=== PATIENT | male | born 1995 | race Caucasian/White ===

== ENCOUNTER 2017-12-14 02:00 | Emergency (ER) | payer OTHER ==
[~2017-12-14] VITALS: Ht 170.2 cm; Wt 78.3 kg
[~2017-12-14 02:00] MED LIST: AGM500 PO; ATOM40CA PO; ATR25 PO; GDN60 PO; RISP0.5T10 PO; TRAZ100T29 PO
[2017-12-14 02:02] VITALS: TEMP 37.4; Ht 170.2 cm; Wt 78.3 kg
[2017-12-14] MEDS ORDERED: KETOROLAC TROMETHAMINE 60 MG/2 ML VIAL IM STA (02:52)
[2017-12-14] MEDS ORDERED: LIDOCAINE HCL 2% VISC SOLN 20 ML UDC MT STA (04:06)
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
[2017-12-14 04:57] VITALS: BP 136/69; PULSE 63; O2SAT 98
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
== END 2017-12-14 04:57 | disposition home or self-care (01) ==
LOC: EDBD 02:00 → C.EDA 02:01
DX: T74.11XA Adult physical abuse, confirmed, initial encounter (principal); T14.8XXA Other injury of unspecified body region, initial encounter; S62.647A Nondisplaced fracture of proximal phalanx of left little finger, initial encounter for closed fracture; Y04.0XXA Assault by unarmed brawl or fight, initial encounter; Y04.2XXA Assault by strike against or bumped into by another person, initial encounter; Y07.59 Other non-family member, perpetrator of maltreatment and neglect

== ENCOUNTER 2020-04-06 18:53 | Inpatient (IN) ==
[2020-04-06 20:01] LABS: iSTAT Creatinine 0.8 mg/dl (0.6-1.3); iSTAT Hemoglobin 15.3 g/dl (14.0-18.0); iSTAT Ionized Calcium 1.25 mmol/l (1.12-1.32); iSTAT Potassium 4.3 mmol/L (3.3-5.0)
[2020-04-06] MEDS ORDERED: DIPHTHERIA/TETANUS/PERTUSSIS 0.5 ML SYR/VIAL IM ONE (20:05)
[2020-04-06] MEDS ORDERED: CLINDAMYCIN 600 MG in DEXTROSE 5% 50 ML IV ONE (20:05)
[2020-04-06] MEDS ORDERED: AMPICILLIN/SULBACTAM SOD 3,000 MG in 0.9 % SODIUM CHLORIDE 100 ML IV STA (20:05)
[2020-04-06] MEDS ORDERED: ONDANSETRON INJ 2 MG/ML 2 ML VIAL IV STA (20:05)
[2020-04-06] MEDS ORDERED: SODIUM CHLORIDE 0.9% 1000ML 1,000 ML IV SCH (20:15)
[2020-04-06] MEDS: fentaNYL citrate 100 MCG/2 ML VIAL IV PRN ×4 (20:15→23:59)
[2020-04-06 20:30] LABS: Hematocrit (blood only) 47.4 % (42-52); Mean Corpuscular Hemoglobin 32.6 pg (25-34); Mean Corpuscular Hgb Conc 33.8 g/dL (32-36); Mean Corpuscular Volume 96.5 fL (80-100); Mean Platelet Volume 10.2 fL (7.4-10.4); Platelet Count 286 K/uL (130-400); RDW Coefficient of Variation 12.7 % (11.5-14.5); RDW Standard Deviation 44.1 fL (36.4-46.3); Red Blood Count 4.91 M/uL (4.7-6.1); White Blood Count 17.05 K/uL (4.8-10.8)
[2020-04-06 20:37] LABS: Albumin Level 3.6 gm/dl (3.4-5.0); BUN Creatinine Ratio 14.8 (10-20); Creatinine Clr Calc Pharmacy 103.4 ml/min; Est GFR (African American) 117.6; Est GFR (Non-African American) 101.4; Potassium 4.4 mmol/L (3.5-5.1)
[2020-04-06 20:39] LABS: Partial Thromboplastin Time 26.8 Seconds (21.0-31.0); Prothrombin Time 10.5 Seconds (9.0-12.0)
[2020-04-06 20:40] LABS: Albumin Globulin Ratio 0.9 (0.9-2); Bilirubin,Total 0.3 mg/dl (0.2-1); Total Protein 7.6 gm/dl (6.4-8.2)
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
[2020-04-06 20:52] LABS: Basophils # (auto) 0.05 K/uL (0-0.2); Basophils % (auto) 0.3 %; Eosinophils # (auto) 0.12 K/uL (0-0.5); Eosinophils % (auto) 0.7 %; Immature Granulocytes # (auto) 0.23 K/uL (0.00-0.02); Immature Granulocytes % (auto) 1.3 %; Lymphocytes # (auto) 2.36 K/uL (1.2-3.4); Lymphocytes % (auto) 13.8 %; Monocytes # (auto) 1.23 K/uL (0.11-0.59); Monocytes % (auto) 7.2 %; Neutrophils # (auto) 13.06 K/uL (1.4-6.5); Neutrophils % (auto) 76.7 %
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
[2020-04-06] MEDS ORDERED: LIDOCAINE/EPINEPHRINE 1% 20 ML VIAL INFIL ONE (21:36)
[2020-04-06] MEDS ORDERED: LIDOCAINE/EPINEPH/TETRACAINE 1 EA SYR EXT STA (21:39)
[2020-04-06] MEDS ORDERED: HYDROmorphone INJ 0.5 MG/0.5 ML SYR IV STA (22:08)
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
[2020-04-07] MEDS ORDERED: ONDANSETRON INJ 2 MG/ML 2 ML VIAL IV PRN ×2 (00:30→15:52)
[2020-04-07 00:40] LABS: Appearance Urine Cloudy (Clear); Bacteria Urine Automated Negative (Negative); Bilirubin Urine Negative (Negative); Blood Urine Negative (Negative); Color Urine Yellow; Epithelial Cell Urine Auto 0-5 /lpf (0-5); Glucose Urine UA 2+ (Negative); Ketones Urine Negative (Negative); Leukocyte Esterase Urine Negative (Negative); Nitrite Urine Negative (Negative); Protein Urine Negative (Negative); RBC Urine Automated 0-4 /hpf (0-4); Specific Gravity Urine 1.021 (1.000-1.030); Urobilinogen Urine Negative (Negative); WBC Urine Automated 0 /hpf (0-5); pH Urine 7.5 (4.5-7.5)
[2020-04-07] MEDS: SODIUM CHLORIDE 0.9% 1000ML 1,000 ML IV SCH ×2 (00:41→09:32)
[2020-04-07] MEDS ORDERED: DEXTROSE 50% 50 ML SYRINGE IV PRN (00:45)
[2020-04-07] MEDS ORDERED: GLUCOSE 40% GEL 15 GM TUBE PO PRN (00:45)
[2020-04-07] MEDS ORDERED: CARBOHYDRATES FOR HYPOGLYCEMIA PO PRN (00:45)
[2020-04-07] MEDS ORDERED: GLUCOSE 10 TABS/TUBE PO PRN (00:45)
[2020-04-07] MEDS ORDERED: GLUCAGON FOR INJ 1 MG VIAL SQ PRN (00:45)
[2020-04-07] MEDS: HYDROmorphone INJ 0.5 MG/0.5 ML SYR IV PRN ×5 (01:19→14:31)
[2020-04-07] MEDS: AMPICILLIN/SULBACTAM SOD 1,500 MG in 0.9 % SODIUM CHLORIDE 100 ML IV SCH ×3 (04:02→17:39)
[2020-04-07] MEDS ORDERED: HYDROmorphone INJ 0.5 MG/0.5 ML SYR IV STA ×2 (05:33→08:32)
[2020-04-07 05:45] LABS: Hemoglobin 15.7 g/dL (14.0-18.0); Mean Corpuscular Hemoglobin 33.2 pg (25-34); Mean Corpuscular Hgb Conc 34.9 g/dL (32-36); Mean Corpuscular Volume 95.1 fL (80-100); Mean Platelet Volume 9.5 fL (7.4-10.4); Platelet Count 243 K/uL (130-400); RDW Coefficient of Variation 12.6 % (11.5-14.5); RDW Standard Deviation 43.7 fL (36.4-46.3); Red Blood Count 4.73 M/uL (4.7-6.1); White Blood Count 20.33 K/uL (4.8-10.8)
[2020-04-07] MEDS ORDERED: INSULIN ASPART 100 UNITS/ML 3 ML PEN SC SCH ×2 (06:00→07:30)
[2020-04-07 06:08] LABS: Estimated Average Glucose 108 mg/dl; Hemoglobin A1C 5.4 % (4.5-5.6)
[2020-04-07 06:13] LABS: Basophils # (auto) 0.05 K/uL (0-0.2); Basophils % (auto) 0.2 %; Eosinophils # (auto) 0.05 K/uL (0-0.5); Eosinophils % (auto) 0.2 %; Immature Granulocytes # (auto) 0.15 K/uL (0.00-0.02); Immature Granulocytes % (auto) 0.7 %; Lymphocytes # (auto) 1.91 K/uL (1.2-3.4); Lymphocytes % (auto) 9.4 %; Monocytes # (auto) 2.25 K/uL (0.11-0.59); Monocytes % (auto) 11.1 %; Neutrophils # (auto) 15.92 K/uL (1.4-6.5); Neutrophils % (auto) 78.4 %
[2020-04-07 06:22] LABS: BUN Creatinine Ratio 10.2 (10-20); Blood Urea Nitrogen 7 mg/dl (7-18); Calcium 8.9 mg/dl (8.5-10.1); Carbon Dioxide 25 mmol/L (21-32); Chloride 110 mmol/L (98-107); Creatinine Clr Calc Pharmacy 161.4 ml/min; Est GFR (African American) > 150.0; Est GFR (Non-African American) 138.1; Glucose 103 mg/dl (70-99); Magnesium 2.2 mg/dl (1.8-2.4); Potassium 3.9 mmol/L (3.5-5.1); Sodium 140 mmol/L (136-145)
--- NOTE | 2020-04-07 07:40 | XRay Report ---
XR chest 1V portable CLINICAL HISTORY: pre op COMPARISON STUDY: No previous studies for comparison. FINDINGS: The bones soft tissues and hemidiaphragms are normal. The cardiomediastinal silhouette is n ormal. The lungs are clear. The pulmonary vasculature is normal. IMPRESSION: Negative chest. ACT 112: Negative or not required by law. The above report was generated using voice recognition software. It may contain grammatical, syntax or spelling errors. Electronically signed by: Brad Deleon M.D. 04/07/2020 7:39 AM
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
[2020-04-07] MEDS: MUPIROCIN 2% OINT 22 GM TUBE EXT SCH (09:54)
[2020-04-07] MEDS ORDERED: ACETAMINOPHEN 1,000 MG/100 ML VIAL IV ONE (13:00)
[2020-04-07] MEDS ORDERED: TRIAMCINOLONE ACET 0.1% OINT 15 GM TUBE ONE (15:11)
[2020-04-07] MEDS ORDERED: LIDOCAINE/EPINE 2% 1:100,000 20ML ONE (15:12)
[2020-04-07] MEDS ORDERED: CHLORHEXIDINE GLUCONATE 0.12% 480 ML ONE (15:12)
[2020-04-07] MEDS ORDERED: BUPIVACAINE/EPINEPHRINE 0.5% 1:200,000 1.8 ML CARP ONE ×2 (15:12→17:52)
[2020-04-07 15:35] LABS: Amphetamines+Metham, Urine Neg (Neg); Barbiturates, Urine Neg (Neg); Benzodiazepine, Urine Neg (Neg); Cocaine, Urine Neg (Neg); MDMA (Ecstacy), Urine Neg (Neg); Methadone, Urine Neg (Neg); Opiate, Urine Pos (Neg); Phencyclidine, Urine Neg (Neg)
[2020-04-07] MEDS ORDERED: ATROPINE SULFATE 0.1 MG/ML 10ML SYR IV PRN (15:52)
[2020-04-07] MEDS ORDERED: ePHEDrine sulfate 50 MG/ML AMP IV PRN (15:52)
[2020-04-07] MEDS ORDERED: HYDROmorphone INJ 2 MG/ML SYR/VIAL IV PRN (15:52)
--- NOTE | 2020-04-07 15:52 | Anesthesiology Consultation ---
Date of Service April 07, 2020 Assessment & Plan ASA ASA2 Proposed Anesthesia Anesthesia Type: General Risk / Benefits Reviewed With: PT / POA / Parent / Guardian, Accepts Plan and Informed Consent Obtained History Surgery Operation Date: 04/07/20 10:20 Proposed Procedures p Right Lower Jaw Open/Closed Reduction, - Sheldon Burk DMD s Extraction of Teeth - Sheldon Burk DMD Height/Weight Height: 5 ft 11 in Weight: 64 kg Allergies Allergy/AdvReac Type Severity Reaction Status Date / Time cat dander AdvReac Mild Cough Verified 04/06/20 20:47 Medications Home Medications Medication Instructions Recorded Confirmed Last Taken No Known Home Medications 08/27/18 04/06/20 Unknown Active Medications Generic Name Dose Route Start Last Admin Trade Name Freq PRN Reason Stop Dose Admin Hydromorphone HCl 0.5 mg 04/07/20 00:30 04/07/20 14:31 Dilaudid IV 04/21/20 00:29 0.5 mg Q3H PRN Administration Pain Sodium Chloride 1,000 mls @ 125 mls/hr 04/07/20 00:30 04/07/20 09:32 Nss 1000ml IV 05/07/20 00:29 125 mls/hr .Q8H CHRISTO Administration Ampicillin Sodium/Sulbactam 104 mls @ 200 mls/hr 04/07/20 04:00 04/07/20 10:48 Sodium 1,500 mg/ Sodium IV 04/14/20 03:59 Infused Chloride Q6H CHRISTO Infusion Protocol Mupirocin 1 appln 04/07/20 09:00 04/07/20 09:54 Bactroban 2% EXT 05/07/20 08:59 1 appln DAILY CHRISTO Administration NPO Date Last Intake of Fluids: 04/06/20 Time Last Intake of Fluids: 23:59 Date Last Intake of Solids: 04/03/20 Time Last Intake of Solids: 23:59 Past Medical History Medical History No significant past medical history Exercise / Class Metabolic Activity 1 > 8 Run/Swim/Ski/Tennis Past Surgical History Surgical History No significant past surgical history Past Anesthesia History No Hx of Anesthesia Complications and No Family Hx of Anesthesia Complications History of PONV No Hx of PONV and No Hx of Motion Sickness Social History Smoking Status: Current some day smoker Hx Alcohol Use: Yes substance use type: unknown Review of Systems denies fever/cough/ colds/ chest pain/ SOB/ HECTOR Constitutional: no fever and no chills Respiratory: no cough and no dyspnea denies HECTOR Cardiovascular: no chest pain and no dyspnea on exertion Physical Exam Vital Signs Last Vital Signs Temp 36.8 C 04/07/20 15:11 Pulse 60 04/07/20 15:11 Resp 18 04/07/20 15:11 BP 129/64 04/07/20 15:11 Pulse Ox 98 04/07/20 15:11 ENMT Mouth: + poor dentition (pt has many shattered teeth from injury. ) and + small oral opening; no TMJ abnormality and no dentition abnormality Thyromental Distance: > or= 3.5 Finger Breadths Mallampati Class: IV Neck neck extension not limited Respiratory normal respiratory effort; no respiratory distress Auscultation: lungs clear to auscultation bilaterally Cardiovascular Rate/Rhythm: regular rate and regular rhythm Neurologic moves all extremities Psychiatric Orientation: alert and oriented x 3 Testing Laboratory Results 04/07/20 05:28 04/07/20 05:28 PT 10.5 Seconds (9.0-12.0) 04/06/20 19:33 INR 1.0 (0.9-1.1) 04/06/20 19:33 APTT 26.8 Seconds (21.0-31.0) 04/06/20 19:33 Hemoglobin A1c 5.4 % (4.5-5.6) 04/07/20 05:28 Urine Color Yellow 04/07/20 00:30 Urine Appearance Cloudy (Clear) A 04/07/20 00:30 Urine pH 7.5 (4.5-7.5) 04/07/20 00:30 Ur Specific [place] 1.021 (1.000-1.030) 04/07/20 00:30 Urine Protein Negative (Negative) 04/07/20 00:30 Urine Glucose (UA) 2+ (Negative) H 04/07/20 00:30 Urine Ketones Negative (Negative) 04/07/20 00:30 Urine Nitrite Negative (Negative) 04/07/20 00:30 Ur Leukocyte Esterase Negative (Negative) 04/07/20 00:30 Urine WBC (Auto) 0 /hpf (0-5) 04/07/20 00:30 Urine RBC (Auto) 0-4 /hpf (0-4) 04/07/20 00:30 U Hyaline Cast (Auto) 1-5 /lpf (0-5) 04/07/20 00:30 U Epithel Cells (Auto) 0-5 /lpf (0-5) 04/07/20 00:30 Urine Bacteria (Auto) Negative (Negative) 04/07/20 00:30 04/07/20 05:44 POC Glucose 123 H
--- NOTE | 2020-04-07 15:53 | History & Physical Bridge Note ---
Date of Service April 07, 2020 History & Physical Bridge Note I have examined the patient, reviewed the History & Physical and in the interval since the performance of the History & Physical I have noted the following changes of clinical significance: no changes noted I reviewed the treatment plan and consent with the patient he was more understanding of the importance of the surgery and follow up needed. OK for open/Closed reduction, extractions as needed, repair of lacerations.
[2020-04-07] MEDS ORDERED: PHENYLEPHRINE 1% NA SPR 15 ML BTL ONE (15:55)
[2020-04-07] MEDS ORDERED: LIDOCAINE 2% JELLY 5 ML TUBE ONE (15:59)
[2020-04-07] MEDS ORDERED: MIDAZOLAM HCL 1 MG/ML 2ML VIAL ONE ×2 (16:11→19:54)
[2020-04-07] MEDS ORDERED: fentaNYL citrate 100 MCG/2 ML VIAL ONE ×4 (16:11→22:01)
[2020-04-07] MEDS ORDERED: PROPOFOL IV EMULSION 10 MG/ML 20 ML VIAL IV ONE (16:56)
[2020-04-07] MEDS ORDERED: ROCURONIUM BROMIDE 10 MG/ML 5 ML VIAL ONE ×3 (16:56→19:42)
[2020-04-07] MEDS ORDERED: HYDROmorphone INJ 2 MG/ML SYR/VIAL ONE (16:57)
[2020-04-07] MEDS ORDERED: SUCCINYLCHOLINE CHLORIDE 20 MG/ML 10 ML VIAL IV ONE (16:57)
[2020-04-07] MEDS ORDERED: BACITRACIN INJ 50,000 UNIT VIAL ONE (19:26)
[2020-04-07] MEDS ORDERED: BACITRACIN INJ 50,000 UNIT VIAL IR ONE (19:32)
[2020-04-07] MEDS ORDERED: KETOROLAC 30 MG/ML VIAL ONE (19:45)
[2020-04-07] MEDS ORDERED: NEOSTIGMINE METHYLSULFATE 5 MG/5 ML SYR ONE (19:45)
[2020-04-07] MEDS ORDERED: GLYCOPYRROLATE 0.2 MG/ML VIAL ONE (19:45)
--- NOTE | 2020-04-07 21:11 | Post Operative Brief Note ---
PG Immediate Post Op with CF Date of Surgery April 07, 2020 Pre & Post Diagnosis Operation Date: 04/07/20 10:20 Pre-Op Diagnosis: Trauma I identified the patient and participated in the time-out.: Yes Procedure Operation Date: 04/07/20 10:20 Actual Procedures p Open Reduction of Mandibular Fracture; Repair of Extensive Facial-Oral Laceration; Placement of Arch Bars(Not Applicable) - Sheldon Burk DMD s Extraction of Teeth 7, 8, 9, and 20(Not Applicable) - Sheldon Burk DMD Surgeon Sheldon Burk DMD Welder Fitter Gas none Estimated Blood Loss 20 Findings Consistent with Post-Op Diagnosis Specimens Specimen Description: None per surgeon.
[2020-04-07] MEDS ORDERED: ACETAMINOPHEN SUSP 160 MG/5 ML UDC PO PRN (21:13)
[2020-04-07] MEDS ORDERED: SODIUM CHLORIDE 0.65% NA SOLN 45 ML (OCEAN) PRN (21:13)
[2020-04-07] MEDS ORDERED: OXYMETAZOLINE 0.05% 30 ML BTL PRN (21:13)
[2020-04-07] MEDS ORDERED: ACETAMINOPHEN SUSP 325 MG/10.15 ML UDC PO PRN (21:40)
[2020-04-07] MEDS: fentaNYL citrate 100 MCG/2 ML VIAL IV PRN ×2 (22:01→22:30)
--- NOTE | 2020-04-07 22:04 | Anesthesiology Progress Note ---
Date of Service April 07, 2020 Anesthesia Post Procedure Vital Signs Vital Signs: Temp Pulse Pulse Pulse Resp BP BP 04/07/20 21:45 73 14 164/83 H 04/07/20 21:35 64 12 163/87 H 04/07/20 21:28 37.7 C H 73 14 168/87 H 04/07/20 15:11 36.8 C 60 18 129/64 04/07/20 07:15 36.8 C 78 18 139/76 04/07/20 00:20 36.8 C 80 16 134/80 04/06/20 22:38 80 18 148/77 H 04/06/20 22:15 79 21 Pulse Ox 04/07/20 21:45 96 04/07/20 21:35 98 04/07/20 21:28 99 04/07/20 15:11 98 04/07/20 07:15 97 04/07/20 00:20 97 04/06/20 22:38 98 04/06/20 22:15 95 Pain Intensity Face: Pain Intensity: 10 Transfer of Care Handoff Completed per policy Notes Mental Status: alert / awake / arousable and participated in evaluation Patient Amnestic to Procedure: Yes Nausea / Vomiting: adequately controlled Pain: adequately controlled Airway Patency, RR, SpO2: stable & adequate BP & HR: stable & adequate Hydration State: stable & adequate Anesthetic Complications: no major complications apparent and Pt Satisfied with anesthetic care
[2020-04-07] MEDS: MoRPHine SULFATE 4 MG/ML 1 ML CARP\\VIAL IV PRN (23:01)
[2020-04-07] MEDS: LORazepam 1 MG/2 ML VIAL IV PRN (23:19)
[2020-04-08] MEDS: SODIUM CHLORIDE 0.9% 1000ML 1,000 ML IV SCH ×2 (00:22→07:53)
[2020-04-08] MEDS: AMPICILLIN/SULBACTAM SOD 1,500 MG in 0.9 % SODIUM CHLORIDE 100 ML IV SCH ×5 (00:23→22:03)
[2020-04-08] MEDS: NICOTINE 21 MG/24 HR TDSY TD SCH ×2 (00:52→09:38)
[2020-04-08] MEDS: HYDROmorphone INJ 0.5 MG/0.5 ML SYR IV PRN ×2 (01:06→04:28)
[2020-04-08] MEDS: MoRPHine SULFATE 4 MG/ML 1 ML CARP\\VIAL IV PRN ×7 (02:56→23:15)
[2020-04-08] MEDS: ACETAMINOPHEN/HYDROCODONE ELIX 15 ML/CUP UDP PO PRN ×3 (06:17→19:41)
--- NOTE | 2020-04-08 06:17 | Electrocardiogram Report ---
Test Reason : Blood Pressure : / mmHG Vent. Rate : 064 BPM Atrial Rate : 064 BPM P-R Int : 180 ms QRS Dur : 090 ms QT Int : 372 ms P-R-T Axes : 003 052 046 degrees QTc Int : 383 ms Normal sinus rhythm with sinus arrhythmia Normal ECG Confirmed by Cr Payne ([id number]) on 04/08/2020 6:17:09 AM Referred By: REFERRED SELF Confirmed By:Cr Payne
[2020-04-08] MEDS ORDERED: ACETAMINOPHEN 1000 MG/100 ML IV IV PRN (07:05)
[2020-04-08] MEDS: D5W AND 1/2NSS 1,000 ML IV SCH (08:01)
[2020-04-08] MEDS: CHLORHEXIDINE GLUCONATE 0.12% 480 ML MT SCH ×2 (08:12→20:31)
[2020-04-08] MEDS ORDERED: HYDROmorphone INJ 0.5 MG/0.5 ML SYR IV PRN (09:33)
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
[2020-04-08 11:36] LABS: Basophils # (auto) 0.04 K/uL (0-0.2); Basophils % (auto) 0.2 %; Eosinophils # (auto) 0.02 K/uL (0-0.5); Eosinophils % (auto) 0.1 %; Hemoglobin 14.9 g/dL (14.0-18.0); Immature Granulocytes # (auto) 0.09 K/uL (0.00-0.02); Immature Granulocytes % (auto) 0.5 %; Lymphocytes # (auto) 2.49 K/uL (1.2-3.4); Lymphocytes % (auto) 13.3 %; Mean Corpuscular Hemoglobin 33.3 pg (25-34); Mean Corpuscular Hgb Conc 35.5 g/dL (32-36); Mean Corpuscular Volume 93.8 fL (80-100); Mean Platelet Volume 9.4 fL (7.4-10.4); Monocytes # (auto) 2.01 K/uL (0.11-0.59); Monocytes % (auto) 10.7 %; Neutrophils # (auto) 14.07 K/uL (1.4-6.5); Neutrophils % (auto) 75.2 %; Platelet Count 239 K/uL (130-400); RDW Coefficient of Variation 12.3 % (11.5-14.5); RDW Standard Deviation 41.7 fL (36.4-46.3); Red Blood Count 4.48 M/uL (4.7-6.1); White Blood Count 18.72 K/uL (4.8-10.8)
[2020-04-08 11:56] LABS: Alanine Aminotransferase 31 U/L (12-78); Albumin Level 3.1 gm/dl (3.4-5.0); Aspartate Aminotransferase 26 U/L (15-37); BUN Creatinine Ratio 10.8 (10-20); Blood Urea Nitrogen 7 mg/dl (7-18); Calcium 9.2 mg/dl (8.5-10.1); Carbon Dioxide 29 mmol/L (21-32); Chloride 103 mmol/L (98-107); Creatinine Clr Calc Pharmacy 169.2 ml/min; Est GFR (African American) > 150.0; Est GFR (Non-African American) 140.8; Glucose 101 mg/dl (70-99); Magnesium 2.1 mg/dl (1.8-2.4); Potassium 3.7 mmol/L (3.5-5.1); Sodium 136 mmol/L (136-145)
[2020-04-08 11:59] LABS: Albumin Globulin Ratio 0.7 (0.9-2); Alkaline Phosphatase 88 U/L (45-117); Bilirubin,Total 0.4 mg/dl (0.2-1); Globulin 4.2 gm/dl (2.5-4.0); Phosphorus 2.7 mg/dl (2.5-4.9); Total Protein 7.3 gm/dl (6.4-8.2)
--- NOTE | 2020-04-08 12:22 | Progress Note ---
Date of Service Post op day # 1 The surgery went very with excellent positioning of the fractured bone. Edward is not tolerating the pain and states that the "new" me Meds re NOT helping at all. He will not keep his mouth clean, not drinking or out of bed. I will instruct him on using warm compresses to soften lips and put the ointment on to prevent drying. Will start clear liquid by straw. Ideally we need him to keep the wounds clean, use the Peridex, continue with the ice. Given how he reacted pre-op I am not surprised Discussed with pain management they will review and suggested better pain control. I will follow tomorrow I am always available by phone April 08, 2020 Assessment & Plan Admission and Anticipated Discharge Date Admission Date: April 06, 2020 Results & Data ([facility]) Vital Signs (Past 12 Hours) Vital Signs Temp Pulse Pulse Resp BP BP Pulse Ox 04/08/20 11:53 36.7 C 72 14 152/83 H 97 04/08/20 07:57 36.8 C 79 16 150/62 H 90 04/08/20 03:16 36.6 C 58 L 14 154/78 H 95 04/08/20 01:55 36.5 C 84 14 164/76 H 95 04/08/20 00:50 36.6 C 68 14 159/84 H 92 PG Care Time/CCT Total # of Minutes Spent Total Time Spent with Patient: Total time spent is greater than 50% in coordination of care (as documented) at patient's floor/unit and/or counseling patient: Coding Level of Care Code 07556 Subseq Hosp Care Lvl 2
[2020-04-08] MEDS ORDERED: MoRPHine SULFATE 4 MG/ML 1 ML CARP\\VIAL ONE (13:06)
[2020-04-08] MEDS: MUPIROCIN 2% OINT 22 GM TUBE EXT SCH (13:17)
[2020-04-08] MEDS: OXYCODONE HCL SOLN 5 MG/5 ML UDC PO PRN ×2 (17:49→22:01)
[2020-04-08] MEDS ORDERED: TRIAMCINOLONE ACET 0.1% OINT 15 GM TUBE EXT SCH (21:00)
[2020-04-08] MEDS: LORazepam 1 MG/2 ML VIAL IV PRN (22:40)
[2020-04-09] MEDS: ACETAMINOPHEN/HYDROCODONE ELIX 15 ML/CUP UDP PO PRN ×2 (00:38→10:00)
[2020-04-09] MEDS: MoRPHine SULFATE 4 MG/ML 1 ML CARP\\VIAL IV PRN ×3 (03:14→11:37)
[2020-04-09] MEDS: AMPICILLIN/SULBACTAM SOD 1,500 MG in 0.9 % SODIUM CHLORIDE 100 ML IV SCH ×2 (03:16→09:50)
[2020-04-09] MEDS: D5W AND 1/2NSS 1,000 ML IV SCH (03:16)
[2020-04-09] MEDS: OXYCODONE HCL SOLN 5 MG/5 ML UDC PO PRN (07:51)
[2020-04-09] MEDS: NICOTINE 21 MG/24 HR TDSY TD SCH (09:49)
[2020-04-09] MEDS: MUPIROCIN 2% OINT 22 GM TUBE EXT SCH (09:49)
[2020-04-09] MEDS: CHLORHEXIDINE GLUCONATE 0.12% 480 ML MT SCH (09:50)
--- NOTE | 2020-04-09 10:32 | Procedure Note ---
Procedure Note Date of Service April 09, POST OP NOTE: The surgery went very well, healing is excellent on POD # 2. Oral care is fair I reviewed the importance of good Oral care to prevent infection , swelling as expected. Reviewed oral care=irrigation device will be given and instructed on use at post op appointment April 14 at 9 am my office. Sutures to be removed on post op in office. Reviewed diet, massage, exercise and continued home/oral care Excellent healing from recent oral surgery OK for discharge to see Discharge plan--to be completed by Dr Burk Coding
--- NOTE | 2020-04-09 11:06 | XRay Report ---
XR facial bones min 3V routine CLINICAL HISTORY: S/P open reduction brisa. Fracture and left condyle fx COMPARISON STUDY: CT scan dated 04/06/2020 FINDINGS: The study is somewhat limited from a positioning standpoint. The patient refused additional imaging. Postsurgical changes involving the mandibular body. There is no definitive chondral disloca tion. There is a metallic plate and screws in the right parasymphyseal mandibular body. A portion of the vertical fracture line is lateral to the metallic plate. Given the oblique nature of the prior fr acture, I suspect that the plate and screws traverse the fracture site.. Metallic braces have been af fixed. IMPRESSION: Postsurgical changes. ACT 112: Negative or not required by law. Electronically signed by: Asaf Arauz M.D. 04/09/2020 11:04 AM
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
[2020-04-10 02:30] LABS: Codeine Urine NEGATIVE ng/mL (<50); Hydrocodone Urine NEGATIVE ng/mL (<50); Hydromor Urine 898 ng/mL (<50); Marijuana Quant, GCMS Urine 86 ng/mL (<5); Morphine Urine NEGATIVE ng/mL (<50); Norhydrocodone Conf Ur NEGATIVE ng/mL (<50); Noroxycodone Urine NEGATIVE ng/mL (<50); Oxycodone Urine NEGATIVE ng/mL (<50); Oxymorph Urine NEGATIVE ng/mL (<50)
--- NOTE | 2020-04-10 12:01 | Operative Report ---
Post Operative Report Pre & Post Diagnosis Operation Date: 04/07/20 10:20 Pre-Op Diagnosis: Trauma to face Bilateral displaced Mandibular Fracture Fractured of teeth Extensive oral/facial lacerations and abrasions Post-Op Diagnosis: Trauma (same as above) I identified the patient and participated in the time-out.: Yes Procedure Operation Date: 04/07/20 10:20 Actual Procedures p Open Reduction of Mandibular Fracture;Placement of Arch Bars(Not Applicable) - Sheldon Burk DMD s Extraction of Teeth 7, 8, 9, and 20(Not Applicable) - Sheldon Burk DMD s Repair of Extensive Facial-Oral Laceration(Not Applicable) - Sheldon Burk DMD Coding Roland Fx CPT 50933 ICD 10 S02.66XB Chin Lac CPT 50082 ICD 10 S01.81XA Lip Lac CPT 86567 ICD 10 S01.511A OPERATION IN DETAIL: After this patient was cleared to undergo general, The patient was placed under general anesthesia via a nasotracheal intubation. After an appropriate time-out was taken to ensure that we had Edward Garcia in our operating room with the proper equipment. After everyone agreed, the operation began. The patient was deeply anesthetized and the tubes were secured. The patient was prepped and draped in the usual manner. Given the nature of the fracture displacement an open reduction with a 2.4 mm plate will be needed. Arch bars will be placed on the upper/lower teeth and then a series of elastics will be placed. Extraction of fractured teeth: the following teeth were fractured at mid root level and were exacted via a surgical method, then sutured closed with a 2-0 chromic Teeth # 7,8,9 and 20 Many other teeth were chipped they were smoothed of any sharp edges, Placement of Arch Bars Upper/Lower teeth: Local anesthesia in the form of Marcaine with a vasoconstrictor, approximately 4 carpules of the local anesthesia was injected. The fractured was reduced and the occlusion was checked. The arch bars were placed on the lower and upper teeth with 24 and 25 gauge stainless steel wires. It was noted that there was instability of the fracture on the right side with a large fragment of bone projecting into the floor of the mouth between teeth # 28 and 29 where the symphyseal fracture was noted. I placed 25-gauge stainless steel wires around these teeth to help stabilize the lower jaw. Given the displacement and instability of the fracture an open reduction was necessary for adequate stability. Opened reduction of mandibular fracture: A 15 blade was used to extend the laceration of the chin to about 6 cm, the chin laceration was very irregular. The electrosurgery unit was used to control bleeders and cut the muscle and periosteal tissue. The periosteal elevator was used to strip the tissue off the bone and expose the fracture. The mental nerve on the right side was protected. The fracture was in a transverse direction from the midline to the second molar area right side with projection of the lingual fragment into the floor of the mouth around area 28-30. I had the teeth lined up with the arch bar and wire around teeth # 28-29 and with some manipulation was able to align the displaced fracture into an ideal relationship. A Nancy bone clamp was used to abhinav the reduction while a placed the bone plate. Bone plate placement: A 2.4 mm bone plate with 2 mm screws was used. The plate was bent to position and made passive to prevent movement of the fracture in an undesirable direction. Using a drill the holes were prepared then 12 mm x 2 mm screws (4) were placed to secure the bone plate in the dense mandibular bone. I now removed the Nancy clamp and found the fracture and occlusion was very stable. The bone fragment exposed intraorally was reduced. I reflected the soft tissue between teeth 28-29 and filed the bone to insure a smooth transition of the site. Placement of inter-arch (dental) fixation with rubber bands: I removed the throat packs, irrigated the oral cavity and suctioned and passed an OG tube. I was able to carefully place the mandible into proper inter-dental relationship with the maxilla. I place the patient into a fixated position with elastics and will verify at the conclusion of the case insure no displacement after extubation. Oral/Facial laceration repair: The repair of a large, deep, complex 6 cm laceration involving the chin deep to the inferior bony border of the mandible. Extensive thought-thought lacerations of the lower lip 4 cm Abrasions of nose I reprepped the laceration and irrigated with an antibiotic solution then turned my attention to the chin laceration. The chin laceration was approximately 6 cm long. It was very irregular and deep the muscle was exposed but not the bone. the muscle was cut to allow the open reduction and expose the inferior border and mental area of the chin. I used an electrocautery instrument and cauterized any bleeders. The wound was irrigated and scrubbed. I then inspected the bone and could find no displacement and excellent plate stability. The closure of the laceration was now started using 4-0 Vicryl suture to line up the deep muscles and periosteum, subcutaneous sutures were positioned with a 5-0 Vicryl and then finally the skin was closed with a combination of 6 and 5-0 nylon suture. A very nice cosmetic closure of this irregular laceration was achieved. This was an intermediate closure of a 6 cm laceration The complex lip laceration was also a thought and through laceration involving 4 cm of the lower lip deann and muscle. The deep muscle was repaired with a 4-0 chromic, the vermilion was aligned with Vicryl sutures, the Muco-cutaneous facial laceration was closed with 4-0 chromic. A very nice closure was obtained with good lip anatomy. Complex repair of 4 cm laceration due to extent of injury and multi trap door and flaps The nasal abrasion were cleaned and required no further treatment. (Please note A shaver was used to remove his thick bailon to allow for cleansing and repair) At this time, benzoin was applied around the periphery and Steri-Strips were applied. The patient was allowed to recover in the usual manner and then once he was fully recovered and moved to the recovery room I checked the fixation and noted the teeth were lined up in a very stable manner. He will be refered to a dentist for evaluation of the teeth that are fractured and chipped, which would be teeth number---7,8,9,20 - extracted and many chipped teeth Recovery Phase: At this time the sponge and instruments count was correct. The patient was allowed to recover in the usual manner and then once fully recovered moved to the recovery room, Post op plans: My plan is to keep the patient in elastic fixation for 4 weeks then allow a modified exercise program and soft diet for the next 3-4 weeks. We will keep the arch bars in place for a total of 8 weeks, then return him to the operating room for removal of the maxillary/mandibular fixation devices. I will refer the patient to a dentist for evaluation of the teeth that are fractured for repair and replacement. Outcome: Transported in stable condition to post anesthesia recovery area. The patient tolerated the surgical procedure and anesthesia extremely well and I anticipate an uneventful postoperative course. Surgeon Sheldon Burk, DMD Certified Physical Therapist Assistant none Estimated Blood Loss 20 Findings Consistent with Post-Op Diagnosis Specimens none Description of Procedure roland Fx opened reduction repair face/lip lacerations I attest to the content of the Intraoperative Record and any orders documented therein. Any exceptions are noted below.
--- NOTE | 2020-05-07 00:03 | Emergency Department Note ---
ED Visit Note I was asked by Dr. Marvin to perform laceration repair of this patient's facial laceration. Examination reveals a 3 cm laceration to the underside of the chin. Verbal consent was obtained to perform the procedure. Using sterile technique the wound was cleaned with Betadine. The area was sterilely draped. 4 ml of 1% buffered lidocaine was used to anesthetize the chin laceration. Once the patient was anesthetized, the wound was copiously irrigated under pressure with sterile saline. The wound was explored and there were no deep structures injured. The laceration was repaired using 6 simple interrupted 6-0 nylon sutures with the wound edges being well approximated. The patient tolerated the procedure well. Hemostasis was achieved. : Fracture of mandible Qualifiers: Encounter type: initial encounter Fracture type: open Mandible location: unspecified site of mandible Laterality: left Qualified Code(s): S02.609B - Fracture of mandible, unspecified, initial encounter for open fracture Face lacerations Qualifiers: Encounter type: initial encounter Qualified Code(s): S01.81XA - Laceration without foreign body of other part of head, initial encounter Head injury Qualifiers: Encounter type: initial encounter Qualified Code(s): S09.90XA - Unspecified injury of head, initial encounter
== END 2020-04-09 11:52 | disposition home or self-care (01) | DRG 132 ==
LOC: ED 18:53 → 3E 22:08